=== PATIENT | female | born 1975 | race Two or more races ===

== ENCOUNTER 2024-09-25 06:14 | Emergency (ER) | payer MEDICAID, SELFPAY ==
[2024-09-25 06:17] VITALS: BP 142/79; PULSE 74; RESP 19; TEMP 36.8; O2SAT 100
[2024-09-25 06:20] VITALS: PULSE 86; RESP 18; O2SAT 98
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
[2024-09-25] MEDS: CYCLObenzaPRINE 5 MG TABLET PO (06:38)
[2024-09-25] MEDS: IBUPROFEN TAB 600 MG TABLET PO (06:39)
[2024-09-25 07:19] LABS: Collection Type, Urine Clean Catch
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
[2024-09-25 07:42] LABS: Bilirubin,Urine Negative (Negative); Blood,Urine Negative (Negative); Clarity,Urine Clear (Clear/Hazy); Color,Urine Lt-Yellow (Lt Yel-Yel); Glucose, Urine Negative (Negative); Ketones,Urine Negative (Negative); Leukocyte Esterase,Urine Negative (Negative); Nitrite,Urine Negative (Negative); Protein,Urine Negative (Neg - Trace); RBC,Urine 1 /hpf (0-3); Specific Gravity,Urine 1.023 (1.001-1.035); Squamous Epithelial Cell,Urine 4 /hpf (0-5); Urobilinogen,Urine Negative mg/dL (0.0-1.0); WBC,Urine 1 /hpf (0-5)
[2024-09-25 07:48] LABS: HCG,Qualitative Serum Negative
== END 2024-09-25 11:55 | disposition home or self-care (01) ==
PROVIDERS: Nurse Practitioner Primary Care; Emergency Provider Emergency Medicine; PCP Family Medicine
DX: S20.211A Contusion of right front wall of thorax, initial encounter (principal); V49.40XA Driver injured in collision with unspecified motor vehicles in traffic accident, initial encounter; W22.11XA Striking against or struck by driver side automobile airbag, initial encounter
CPT/HCPCS: 36415; 71250; 81001; 84703; 99284; A9270